=== PATIENT | male | born 1940 | race Caucasian/White ===

== ENCOUNTER 2016-10-24 08:21 | Day surgery (SDC) ==
[2016-10-24] MEDS ORDERED: LIDOCAINE 1% 20 ML MDV ONE (09:02)
[2016-10-24] MEDS ORDERED: LIDOCAINE 1% 20 ML MDV ID ONE (09:02)
[2016-10-24] MEDS ORDERED: DIPRIVAN 20 ML VIAL IVP ONE (11:00)
[2016-10-24] MEDS ORDERED: VERSED ONE (11:00)
[2016-10-24 12:34] VITALS: BP 121/68; TEMP 98.6
--- NOTE | 2016-10-24 14:53 | OP ---
PROCEDURE: COLONOSCOPY TO THE CECUM WITH SNARE POLYPECTOMY, SALINE INJECTION. ENDOSCOPIST: Jose MERCADO M.D. INDICATION: FOLLOWUP WITH PIECEMEAL RESECTION. INSTRUMENT: [facility]-190. MEDICATION: PER ANESTHESIA. PROCEDURE: The patient was positioned for colonoscopy. The digital rectal exam was negative. The colonoscope was inserted through the anus and advanced under direct vision to the cecum. The cecum was identified using the ileocecal valve and the appendiceal orifice as landmarks. The scope was slowly withdrawn through an adequately prepped colon. We identified the Narda Ink in the transverse colon, tranillumination would have been left of the midline in the upper left quadrant. There was a 1 to 1.2 cm sessile area consistent with residual polyp. Initially, we tried to remove this using a snare. We were able to trap a small portion of it, could not encompass the snare around the polyp with multiple attempts using different types of snares. We then tried Saline to lift and this area was frozen to the submucosa with failure to lift being noted throughout the remaining polyp. We discontinued our attempt at resection at that time. There is significant Narda Ink in the area to localize this surgically. The remaining colon was normal. The retroflex exam was negative. Withdrawal time 28 minutes. PLAN: We will need to refer him to a surgeon for resection of this unresectable residual polyp. CC: DR. JORGE SALAZAR
== END 2016-10-24 12:55 | disposition home or self-care (01) ==
LOC: SURG 08:21
PROVIDERS: ATTEND Internal Medicine Gastroenterology
DX: Z86.010 Personal history of colon polyps (principal); E11.9 Type 2 diabetes mellitus without complications

== ENCOUNTER 2018-04-23 06:26 | Day surgery (SDC) ==
[2018-04-23] MEDS ORDERED: LIDOCAINE 1% 20 ML MDV ID STA (07:12)
[2018-04-23] MEDS ORDERED: DIPRIVAN 20 ML VIAL IVP ONE (08:25)
[2018-04-23 15:06] VITALS: BP 112/56; TEMP 98.6
--- NOTE | 2018-04-24 10:50 | OP ---
PROCEDURE: COLONOSCOPY TO THE CECUM WITH SNARE POLYPECTOMY. ENDOSCOPIST: Jose MERCADO M.D. INDICATION: HISTORY OF ADENOMATOUS POLYPS/SURGICAL RESECTION LAST YEAR FOR LARGE UNRESECTABLE POLYP. INSTRUMENT: [id number]. MEDICATION: PER ANESTHESIA. DATE OF LAST COLONOSCOPY: 2016 PROCEDURE: The patient was positioned for colonoscopy. The digital rectal exam was negative. The colonoscope was inserted through the anus and advanced to the cecum. The cecum was identified using the ileocecal valve and the appendiceal orifice as landmarks. The scope was slowly withdrawn through an adequately prepped colon. [place] Bowel Prep Score equals 9. The anastomosis was easily identified in the midtransverse colon. At 80cm a small polyp is removed using snare cautery. A small polyp at 40cm removed using snare cautery. A small polyp times two at 20cm using snare cautery. The retroflex exam was otherwise normal. The patient tolerated the procedure without immediate complication. PLAN: 1. Suggest repeat colonoscopy in 3 years MTDD
== END 2018-04-23 09:20 | disposition home or self-care (01) ==
LOC: SURG 06:26
PROVIDERS: ATTEND Internal Medicine Gastroenterology
DX: D12.6 Benign neoplasm of colon, unspecified (principal); K63.5 Polyp of colon; Z86.010 Personal history of colon polyps